=== PATIENT | female | born 1935 | race Two or more races ===

== ENCOUNTER 2017-01-19 05:19 | Day surgery (SDC) | payer OTHER, MEDICARE ==
[~2017-01-19] VITALS: Ht 170.2 cm; Wt 81.6 kg
[~2017-01-19 05:19] MED LIST: AMLODIPINE-BEN1 EACH PO; Bactrim,Septra DS 80 PO; CENTRUM SILVER1 EAC4 PO; CRANBERRY200 MG PO; CYCLOBENZAPRINE10 MG PO; Colace PO; EFFEXOR75 MG PO; Feosol PO; LASIX20 MG PO; LEXAPRO20 MG PO; LOTENSIN10 MG PO; Lotrel 5/10 PO; Lovenox SC; METFORMIN HCL1000 MG PO; METOPROLOL TART25 MG PO; Oscal 500 w/Vitamin PO; Percocet 5/325,Endoc PO; SERTRALINE HCL100 MG PO; Senokot S,Pericolace PO; TRAMADOL HCL50 MG PO; TRIAMTERENE-HC1 EACH PO; Theragran PO; VISKEN10 MG PO; VYTORIN 10/21 TABLET PO; Vitamin D, Drisdol PO; ZOCOR10 MG PO; Zoloft PO; [UNRECOGNIZED DRUG - REMARK]
[2017-01-19 05:55] VITALS: BP 161/70
[2017-01-19 06:26] LABS: POINT-OF-CARE METER ID UU14174212
[2017-01-19 09:10] LABS: POINT-OF-CARE METER ID UU13113675
[2017-01-19 09:17] VITALS: BP 144/65
[2017-01-19 09:53] VITALS: BP 133/62
== END 2017-01-19 10:02 | disposition home or self-care (01) ==
LOC: SDC 05:19
PROVIDERS: Ophthalmology
DX: H35.341 Macular cyst, hole, or pseudohole, right eye (principal); H33.311 Horseshoe tear of retina without detachment, right eye; H35.371 Puckering of macula, right eye; I10 Essential (primary) hypertension; E11.9 Type 2 diabetes mellitus without complications; Z87.891 Personal history of nicotine dependence
CPT/HCPCS: 82948; J0690; J0713; J2250; J3300